=== PATIENT | female | born 1960 | race Caucasian/White ===

== ENCOUNTER 2023-08-19 12:53 | Outpatient (CLI) | payer BC, SELFPAY ==
--- NOTE | 2023-08-19 13:00 | MR_ITS ---
[facility] [address] [facility] [address] Phone:?[phone] Fax:?[phone] Referring Physician Information: Vignesh Stover M.D. [address] [facility] [address] Phone:?[phone] Fax:?[phone] Patient:Marilou Zuniga D.O.B:?1960 Sex:?Female Phone:? [facility] MRN:?[id number] Exam Date:?08/19/2023 EXAM: MRI OF THE LEFT KNEE CLINICAL INFORMATION: The patient is a 63-year-old with left knee pain and stiffness. PRIOR SURGERY: None reported. COMPARISON STUDIES: There are no prior studies available for comparison. TECHNICAL INFORMATION: Imaging was performed on a high-field, 1.5 Kellee MR scanner. Axial proton-density and fat-suppressed T2 imaging of the left knee was produced in addition to coronal proton-density and coronal STIR imaging. Sagittal proton-density and fat-suppressed proton-density imaging was also performed FINDINGS: Articular/Extraarticular collections: Effusion: Mild. Popliteal cyst: Small to moderate, seen on sagittal series 6 image 11. Loose bodies: No well-defined intra-articular loose bodies are present. Subcutaneous and extraarticular soft tissues: Within normal limits. Osseous structures: There is cortical irregularity, subcortical cystic change, and subcortical edema along the articular surfaces of the patella, in keeping with chondromalacia and chondral loss described below. No other bony abnormalities about the knee are seen. There is no evidence for fracture, contusion, or stress injury. Ligamentous structures: ACL: Intact and normal in appearance. PCL: Intact and normal in appearance. MCL: Intact and normal in appearance. LCL: Intact and normal in appearance. Posterolateral corner: Intact and normal in appearance. Posteromedial corner: No posteromedial corner soft tissue injury. Semimembranosus and pes anserine tendons demonstrate no tendinopathy or associated bursitis. Extensor mechanism/Patellar retinacular structures: Patellar tendon: Intact, without tendinopathy. Quadriceps tendon: Intact, without tendinopathy. Retinacula: The medial and lateral retinacula are intact. The medial patellofemoral ligament is intact. Medial compartment: Medial meniscus: The medial meniscus is abnormal in appearance. There is broad- based apical free edge and superior surface tearing of the posterior horn of the medial meniscus seen on sagittal series 5 image 11 and on coronal series 7 image 21. The broad-based area of tearing measures 21 mm in mediolateral dimension. Additional degeneration, fraying, and irregularity of the middle one third of the medial meniscus can be seen. The anterior horn appears intact. No parameniscal cyst formation is identified. Medial femoral condyle: Broad-based changes of grade II to III chondromalacia can be seen along the central and posterior articular surfaces of the medial femoral condyle. No full-thickness chondral defects are seen. Medial tibial plateau: No chondromalacia, chondral defect, or osteochondral abnormality. Lateral compartment: Lateral meniscus: No evidence for lateral meniscal tearing is present. No evidence for parameniscal cyst formation can be seen. Lateral femoral condyle: Grade II chondromalacia can be seen along the weightbearing surfaces of the lateral femoral condyle. No full-thickness chondral defects are identified. Lateral tibial plateau: No chondromalacia, chondral defect, or osteochondral abnormality. Patellofemoral compartment: Patella: Full-thickness and near full-thickness chondral loss can be seen involving the patellar apex and adjacent portions of the medial and lateral patellar facets on axial series 4 image 9, measuring 18 mm in mediolateral dimension. Additional grade II to III chondromalacia of the remainder of the lateral patellar facet can be seen. Trochlea: No chondromalacia, chondral defect, or osteochondral abnormality. Neurovascular: No definite neurovascular abnormalities are seen. CONCLUSION: 1. Broad-based tearing and degeneration of the medial meniscus as described above. No lateral meniscal tearing is seen. 2. 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 3. The cruciate and collateral ligaments appear intact. 4. Mild knee joint effusion and [id number] popliteal cyst. [facility] Electronically signed on 08/20/2023 7:05:00 AM by Mario Rojas M.D.
== END 2023-08-19 12:54 | disposition home or self-care (01) ==
LOC: MRI 12:54
PROVIDERS: PCP Family Medicine; Visit Provider Orthopaedic Surgery Sports Medicine
DX: M25.562 Pain in left knee (principal); S83.242A Other tear of medial meniscus, current injury, left knee, initial encounter; M22.42 Chondromalacia patellae, left knee; M25.462 Effusion, left knee
CPT/HCPCS: 73721